=== PATIENT | female | born 1950 | race Hispanic/Latino ===

== ENCOUNTER 2016-11-26 16:48 | Observation (INO) | payer MEDICARE, OTHER ==
[2016-11-26 16:55] VITALS: BMI 34.1
[2016-11-26] MEDS ORDERED: Levalbuterol 1.25 MG/3 ML Inhal Soln UD IH STA (17:09)
[2016-11-26 17:14] LABS: ADD MANUAL DIFF? NO
--- NOTE | 2016-11-26 17:14 | ED PDOC ---
Arrival/HPI - General Chief Complaint: Chest Pain Time Seen by Provider: 11/26/16 16:51 Historian: Patient - History of Present Illness Narrative History of Present Illness (Text): 11/26/16 17:07 A 66 year old female, whose past medical history includes CT, 5 cardiac stents, hypertension, hyperlipidemia and borderline diabetes, presents to the emergency department complaining of chest heaviness for 1 week. Patient reports she experiences this symptom when ambulating and notes associated left arm tightness. Patient was seen by PMD yesterday, diagnosed with bronchitis and started on antibiotics. Patient notes a mild cough and congestion but denies any fever, chills, nausea, vomiting, diarrhea, abdominal pain, urinary symptoms , hematuria, hematochezia, headache, dizziness or any other complaints. Patient regularly takes Plavix. PMD: Dr. Muro Time/Duration: 1 week Symptom Course: Unchanged Quality: Other Context: Walking Past Medical History - Provider Review Nursing Documentation Reviewed: Yes - Infectious Disease Hx of Infectious Diseases: None - Cardiac Hx CT: Yes Hx Hypertension: Yes - HEENT Hx HEENT Disorder: (sinus problems) - Musculoskeletal/Rheumatological Hx Falls: No - Genitourinary/Gynecological Hx Genitourinary Disorders: (fibroids and uterine polyps) - Psychiatric Hx Anxiety: Yes Hx Depression: Yes Hx Emotional Abuse: No Hx Physical Abuse: No Hx Substance Use: No - Past Surgical History Past Surgical History: Unable to Obtain - Surgical History Hx Cardiac Catheterization: Yes Hx Coronary Stent: Yes (x5 5 yrs ago) - Suicidal Assessment Feels Threatened In Home Enviroment: No Family/Social History - Physician Review Nursing Documentation Reviewed: Yes Family/Social History: No Known Family HX Smoking Status: Heavy Smoker > 10 Cigarettes Daily Hx Alcohol Use: No Hx Substance Use: No Hx Substance Use Treatment: No Allergies/Home Meds Allergies/Adverse Reactions: Allergies No Known Allergies Allergy (Verified 05/05/15 12:19) Home Medications: Home Meds Medication Instructions Recorded Confirmed Amlodipine Besylate 5 mg PO DAILY 04/02/12 05/05/15 Aspirin [Aspir 81] 81 mg PO DAILY 04/02/12 05/05/15 Atrovastatin 20 mg PO DAILY 10/06/13 05/05/15 Meloxicam [Meloxicam] 7.5 mg PO PRN PRN 04/17/14 11/14/15 Metoprolol Succinate 50 mg PO DAILY 10/06/13 05/05/15 Review of Systems - Physician Review All systems were reviewed & negative as marked: Yes - Review of Systems Constitutional: absent: Fevers, Night Sweats ENT: Sinus Congestion Respiratory: Cough Cardiovascular: Chest Pain Gastrointestinal: absent: Abdominal Pain, Diarrhea, Nausea, Vomiting, Hematochezia Genitourinary Female: absent: Dysuria, Frequency, Hematuria, Urine Output Changes Musculoskeletal: Other (Left arm tightness) Neurological: absent: Headache, Dizziness Physical Exam Vital Signs Reviewed: Yes Vital Signs Temp Pulse Resp BP Pulse Ox 11/26/16 16:52 98.3 F 90 16 162/89 H 97 Temperature: Afebrile Blood Pressure: Hypertensive Pulse: Regular Respiratory Rate: Normal Appearance: Positive for: Well-Appearing, Non-Toxic, Comfortable Pain Distress: None Mental Status: Positive for: Alert and Oriented X 3 - Systems Exam Head: Present: Atraumatic, Normocephalic Pupils: Present: PERRL Conjunctiva: Present: Normal Mouth: Present: Moist Mucous Membranes Pharnyx: Present: Normal. No: ERYTHEMA Neck: Present: Normal Range of Motion Respiratory/Chest: Present: Clear to Auscultation, Decreased Breath Sounds ( Mildly). No: Respiratory Distress, Accessory Muscle Use Cardiovascular: Present: Regular Rate and Rhythm, Normal S1, S2. No: Murmurs Abdomen: Present: Normal Bowel Sounds. No: Tenderness, Distention, Peritoneal Signs Back: Present: Normal Inspection Upper Extremity: Present: Normal Inspection. No: Cyanosis, Edema Lower Extremity: Present: Normal Inspection. No: Edema Neurological: Present: GCS=15, CN II-XII Intact, Speech Normal Skin: Present: Warm, Dry, Normal Color. No: Rashes Psychiatric: Present: Alert, Oriented x 3, Normal Insight, Normal Concentration Medical Decision Making ED Course and Treatment: 11/26/16 17:07 Impression: A 66 year old female with chest heaviness and left arm tightness when ambulating. Patient notes mild cough and congestion. Plan: -- Chest xray -- EKG -- Labs -- Urinalysis -- Xopenex -- Reassess and disposition Progress Notes: EKG shows NSR at 93 BPM with T wave flattening in V4, V5 and V6, with changes compared to prior EKG on 10/07/13. Interpreted by me. 11/26/16 18:55 Patient with noted history of CAD/stents, on asa and plavix. EKG shows nondefinitive changes. Labs are nondiagnostic. CXR is unremarkable. She already took her asa today. Will need to observe further on tele and obtain cardiology evaluation. Case discussed with Dr. Bhatia, covering her PMD, Dr. Muro. - Lab Interpretations Lab Results: 11/26/16 17:00 11/26/16 17:00 Lab Results 11/26/16 17:45: Urine Color Yellow, Urine Appearance Clear, Urine pH 6.0, Ur Specific [place] 1.025, Urine Protein Negative, Urine Glucose (UA) Negative, Urine Ketones Negative, Urine Blood Negative, Urine Nitrate Negative, Urine Bilirubin Negative, Urine Urobilinogen 0.2, Ur Leukocyte Esterase Negative 11/26/16 17:00: PT 10.8, INR 1.00, APTT 28.5 11/26/16 17:00: Sodium 137, Potassium 3.9, Chloride 103, Carbon Dioxide 23, Anion Gap 15, BUN 20, Creatinine 0.8, Est GFR ( Amer) > 60, Est GFR (Non- Af Amer) > 60, Random Glucose 106, Calcium 11.0 H, Magnesium 1.7, Total Bilirubin 0.6, AST 32, ALT 35, Alkaline Phosphatase 122, Lactate Dehydrogenase 455, Total Creatine Kinase 71, Troponin I < 0.01 D, NT-Pro-B Natriuret Pep 129 , Total Protein 8.2, Albumin 4.8, Globulin 3.4, Albumin/Globulin Ratio 1.4, Lipase 140 11/26/16 17:00: WBC 13.3 H, RBC 5.41, Hgb 16.4 H, Hct 47.3, MCV 87.4, MCH 30.3, MCHC 34.7, RDW 13.6, Plt Count 260, MPV 10.6, Gran % 53.2, Lymph % (Auto) 35.9 H , [place] % (Auto) 7.8 H, Eos % (Auto) 2.6, Baso % (Auto) 0.5, Gran # 7.10 H, Lymph # 4.8 H, [place] # 1.0 H, Eos # 0.3, Baso # 0.06 I have reviewed the lab results: Yes - RAD Interpretation Radiology Orders: 11/26/16 17:09 CHEST PORTABLE [RAD] Stat - Medication Orders Current Medication Orders: Discontinued Medications Levalbuterol HCl (Xopenex) 1.25 mg IH STAT STA Stop: 11/26/16 17:10 Last Admin: 11/26/16 17:19 Dose: 1.25 mg - Scribe Statement The provider has reviewed the documentation as recorded by the Yosephibcarlota Avila Provider Scribe Attestation: All medical record entries made by the Scribe were at my direction and personally dictated by me. I have reviewed the chart and agree that the record accurately reflects my personal performance of the history, physical exam, medical decision making, and the department course for this patient. I have also personally directed, reviewed, and agree with the discharge instructions and disposition. Disposition/Present on Arrival - Present on Arrival Any Indicators Present on Arrival: No History of DVT/PE: No History of Uncontrolled Diabetes: No Urinary Catheter: Yes (INSERTED IN OR) History of Decub. Ulcer: No History Surgical Site Infection Following: None - Disposition Have Diagnosis and Disposition been Completed?: Yes Diagnosis: Chest pain Disposition: HOSPITALIZED Disposition Time: 18:20 Patient Plan: Observation, Telemetry Condition: FAIR
[2016-11-26 17:17] LABS: BASO # 0.06 K/mm3 (0.0-2.0); BASO % 0.5 % (0.0-3.0); EOS # 0.3 (0.0-0.7); EOS % 2.6 % (1.5-5.0); GRAN % 53.2 % (50.0-68.0); HEMATOCRIT 47.3 % (36.0-48.0); LYMPH # 4.8 (1.2-3.4); LYMPH % 35.9 % (22.0-35.0); MEAN CELL VOLUME 87.4 fL (80.0-105.0); MEAN CORPUSCULAR HEMOGLOBIN 30.3 pg (25.0-35.0); MEAN CORPUSCULAR HGB CONC 34.7 g/dl (31.0-37.0); MEAN PLATELET VOLUME 10.6 fl (7.0-11.0); MONO % 7.8 % (1.0-6.0); PLATELET COUNT 260 10^3/uL (120.0-450.0); RED CELL DISTRIBUTION WIDTH 13.6 % (11.5-14.5); WHITE BLOOD COUNT 13.3 10^3/ul (4.5-11.0)
[2016-11-26 17:26] LABS: ALB/GLOB RATIO 1.4 (1.1-1.8); ALKALINE PHOSPHATASE 122 U/L (38-133); ALT/SGPT 35 U/L (7-56); AST/SGOT 32 U/L (15-39); BILIRUBIN,TOTAL 0.6 mg/dL (0.2-1.3); BLOOD UREA NITROGEN 20 mg/dL (7-21); CARBON DIOXIDE 23 mmol/L (21-33); CHLORIDE 103 mmol/L (98-107); GFR AFRICAN-AMERICAN > 60; GLUCOSE,RANDOM 106 mg/dL (70-110); LIPASE 140 U/L (23-300); MAGNESIUM 1.7 mg/dL (1.7-2.2); POTASSIUM 3.9 mmol/L (3.6-5.0); SODIUM 137 mmol/L (132-148); TOTAL PROTEIN 8.2 g/dL (5.8-8.3)
[2016-11-26 17:29] LABS: PARTIAL THROMBOPLASTIN TIME 28.5 Seconds (23.7-30.8)
[2016-11-26 17:39] LABS: TROPONIN I < 0.01 ng/mL
[2016-11-26 18:20] LABS: URINE BILIRUBIN NEGATIVE (NEGATIVE); URINE BLOOD NEGATIVE (NEGATIVE); URINE GLUCOSE (UA) NEGATIVE (NEGATIVE); URINE KETONE NEGATIVE (NEGATIVE); URINE LEUKOCYTE ESTERASE NEGATIVE Leu/uL (NEGATIVE); URINE PROTEIN NEGATIVE mg/dL (<30 mg/dL); URINE UROBILINOGEN 0.2 E.U./dL (<1 E.U./dL)
[2016-11-26 18:26] LABS: URINE APPEARANCE CLEAR (CLEAR); URINE COLOR YELLOW (YELLOW)
--- NOTE | 2016-11-26 18:52 | RAD ---
HISTORY: cp COMPARISON: Chest x-ray performed 10/17/13 TECHNIQUE: Chest, one view. FINDINGS: Examination limited by habitus. LUNGS: Sharply defined opacity at the right lung base, uncertain etiology. Please note that chest x-ray has limited sensitivity for the detection of pulmonary masses. PLEURA: No significant pleural effusion identified. No definite pneumothorax . CARDIOVASCULAR: Cardiomegaly. OSSEOUS STRUCTURES: No acute osseous abnormality identified. VISUALIZED UPPER ABDOMEN: Unremarkable. OTHER FINDINGS: None. IMPRESSION: Sharply defined opacity at the right lung base, uncertain etiology. Recommend CT of the chest with IV contrast for further evaluation. Cardiomegaly.
[2016-11-26] MEDS ORDERED: Pneumococcal 23-Valent Vaccine IM ONE (22:34)
[2016-11-27 00:24] VITALS: TEMP 98.2; O2SAT 98
[2016-11-27 02:11] LABS: TROPONIN I < 0.01 ng/mL
[2016-11-27 05:33] VITALS: BP 122/79; RESP 18
[2016-11-27 06:23] VITALS: PULSE 57
--- NOTE | 2016-11-27 08:16 | HP ---
I saw her in her room this morning. She is comfortable, slept fairly well, nervous. She is a 66-yea r-old female, presents with chest pain, heaviness for about a week, not feeling well, also left arm t ightness. She has had bronchitis. She has been on antibiotics. Mild cough, congestion. PAST MEDICAL HISTORY: Myocardial infarction, 5 cardiac stents, hypertension, high cholesterol, borde rline diabetes, sinus problems, fibroids and uterine polyps, anxiety, depression stents in the heart. FAMILY HISTORY: Hypertension and diabetes in the family. She is a heavy smoker, no alcohol. ALLERGIES: No known drug allergies. MEDICATIONS: She is on Norvasc, aspirin, atorvastatin, Meloxicam, metoprolol. No acute fevers, no night sweats. No vision changes, no hearing changes, no sore throat. She is cou ghing. There is sinus congestion. There is chest pain, left chest pressure, left arm pain. No naus ea, vomiting, constipation, diarrhea. No problems urinating. Left arm tightness. No headaches or d izziness. PHYSICAL EXAMINATION: VITAL SIGNS: She has a 98.3 temp, 90 pulse, 16 respiratory rate, 162/89 blood pressure, 97% O2 sat. GENERAL: Well-appearing, nontoxic. HEENT: Head is atraumatic, normocephalic. Pupils equally reactive to light. Extraocular muscles ar e intact. Throat is moist. NECK: Supple. HEART: Regular rate. LUNGS: Decreased breath sounds, but clear to auscultation. ABDOMEN: Soft, nontender, positive bowel sounds, obese. EXTREMITIES: No edema. NEUROLOGIC: GCS is 15. Cranial nerves II-XII grossly intact. SKIN: Warm and dry. NEUROLOGIC: Alert and oriented x 3. LYMPHATIC: Thyroid midline. No palpable lymphadenopathy. She has a 13,000 white count, 13.3, 16.4 hemoglobin, 47.3 hematocrit with 260 platelets. INR is 1. She has a 137 sodium, potassium 3.9, BUN 20, creatinine 0.8, GFR is greater than 60, sugar is 106, ca lcium is 11, magnesium is 1.7, total bili is 0.6, AST is 32, ALT is 35, alk phos 122. Troponins are 0.01, less than 0.01. Total protein is 8.2. BNP is 129. Albumin is 4.8. I am upset about the 11 calcium when being a smoker. Urine is clean. Her chest x-ray shows an opaci ty in the right lung base. With an 11 calcium and opacity in the right lung base, I have to make josh e it is not a cancer. I am ordering a CAT scan of the chest. I called in pulmonary. Cardio not see n her yet. I am worried there could be a lung cancer. I discussed that with her. I am trying to ge t her to do the CAT scan. At this time, she is refusing. I will go in one more time. I can gave he r a medication to calm her down. We will see what she says. She is on atorvastatin, Ecotrin, Norvasc, Toprol, and Xopenex. She is here for chest pain and now a lung opacity. Clifford Muro DO cc: [id number] TT: 11/27/2016 08:16:25 en
--- NOTE | 2016-11-27 08:25 | DS ---
She came in with chest pain. The troponins are negative. She is refusing to stay anymore. There wa s also an opacity in the lungs and I am asking for a CAT scan of the chest. She out right refuses an d wants to go home. It is in the right lung base. She also has an 11 calcium. I discussed the poss ibility of cancer of the lung. She is a heavy smoker for many years. She refuses to get the CAT sca n. She says maybe one day in the next week or 2 she will get the CAT scan, but she does not want it now. She does not want to stay for the software test automation engineer to see her. She will go home on Ecotrin, Lipito r, Norvasc, Toprol. She does have a 13,000 white count. She is on a Z-LAINEY at home. I am going to s top the Z-LAINEY and put her on Levaquin. She will follow with me in the outpatient I hope. She will q uit smoking I hope. She will get the CAT scan of the chest I hope to make sure it is not a cancer. I will repeat the labs in a week. I hope she follows up with me. The oxygen tank filler spoke to her and the nurse spoke to her. Hopefully, she will do well. The patient had chest pain, refusing any furt her workup. Clifford Muro DO cc: [id number] TT: 11/27/2016 08:24:12 tn
--- NOTE | 2016-11-27 08:32 | CON ---
DATE: 11/27/2016 REFERRING PHYSICIAN: Dr. Muro. REASON FOR CONSULTATION: Abnormal chest x-ray. HISTORY OF PRESENT ILLNESS: The patient is a 66-year-old female with past medical history significant for extensive coronary artery disease, status post 5 cardiac stents, hypertension, hyperlipidemia, borderline diabetes mellitus, who presents to [facility] with intermittent chest discomfort ( described as a heaviness) for the past week. The patient is not short of breath at rest. She does state to some mild occasional dyspnea on exertion for many years. She denies cough or sputum production. The patient also denies chest pain, coughing up of blood or chest pain -- made worse with deep respirations. There is no history of temperatures, chills or infectious exposure. There is no history of night sweats, weight loss or appetite change prior to the above events. No history of leg or calf pains. No history of syncope or diaphoresis. No history of recent travel or trauma. REVIEW OF SYSTEMS: No history of nausea, vomiting or diarrhea. No acute urinary symptoms. No new neurologic complaints. Rest of the review of systems is negative. ALLERGIES: No known allergies. SOCIAL HISTORY: Positive for extensive tobacco usage -- still smokes. No alcohol. FAMILY HISTORY: No inheritable diseases. HOME MEDICATIONS: Include metoprolol, meloxicam, atorvastatin, aspirin, amlodipine. PHYSICAL EXAMINATION: GENERAL: The patient appears comfortable at rest. She is not short of breath. VITAL SIGNS: Temperature is 98.2, pulse 57, respirations 18, blood pressure 122 /79. Oxygen saturation on room air is 98%. HEENT: Normocephalic, atraumatic. NECK: No JVD. CARDIOVASCULAR: Positive S1, S2. No S3. LUNGS: Clear bilaterally. EXTREMITIES: Mild edema. No cyanosis, no clubbing. Calves are nontender to palpation. GASTROINTESTINAL: Abdomen is soft, nontender, nondistended. Bowel sounds are positive. SKIN: No acute rash. NEUROLOGIC: Limited at the present time. PERTINENT LABORATORY DATA: Chest x-ray was done yesterday and reviewed. There is an irregular opacity noted at the right lung base. This opacity has been present-- dating back to the film of 01/18/13. CBC: White count 13.3, hemoglobin 16.4, hematocrit 47.3, platelets of 260. Complete metabolic profile : Calcium 11.0. Rest of the metabolic profile is within normal limits. IMPRESSION: 1. Chest discomfort -- resolved. 2. Extensive coronary artery disease. 3. Abnormal chest x-ray. 4. Hypertension. PLAN: The patient presents to [facility] with intermittent chest discomfort (described as a heaviness) over the past week. She also has a history of dyspnea on exertion for many years. As above, she has an extensive smoking history - and continues to smoke. I did discuss this issue with her at length this morning. I did review the chest x-ray as above. The x-ray shows an irregular opacity at the right base -- which was present on multiple films - - dating back to 01/18/13. A CAT scan of the chest has been ordered for closer evaluation. On physical exam, the patient's lungs are clear. Oxygen saturation on room air is 98%. As above, the patient's chest discomfort has resolved. She feels much better overall. Cardiology evaluation with Dr. Arguello has been ordered. Repeat a.m. labs are also ordered. The patient is for possible discharge later today. I have given her my card/information for a followup appointment - and advised the patient strongly that she follow up with me. She agrees. Additional pulmonary intervention will be based on the above results, as well as the clinical status of the patient. I did discuss the above with Dr. Mruo at length. Thank you very much for this pulmonary consultation. Lopez Diop MD cc: [id number] TT: 11/27/2016 08:31:21 Confirmation # [id number] Dictation # [id number] MTDD
[2016-11-27] MEDS ORDERED: Metoprolol Succinate 50 mg XL Tab PO SCH (10:00)
[2016-11-27] MEDS ORDERED: levoFLOXacin 500 MG TAB PO SCH (10:00)
--- NOTE | 2016-11-27 10:33 | CARD ---
APPROVED REPORT EKG Measurement Heart [id number] ID [id number] <Conclusion> Normal sinus rhythm Inferior infarct, old NSSTW changes
== END 2016-11-27 11:00 | disposition home or self-care (01) ==
LOC: ED 16:48 → ERH 18:21 → 2RNO 23:22
PROVIDERS: ADMIT Family Medicine; ATTEND Family Medicine
DX: R07.9 Chest pain, unspecified (principal); I10 Essential (primary) hypertension; E78.00 Pure hypercholesterolemia, unspecified; I25.10 Atherosclerotic heart disease of native coronary artery without angina pectoris; E78.5 Hyperlipidemia, unspecified; R73.03 Prediabetes; F41.9 Anxiety disorder, unspecified; F17.200 Nicotine dependence, unspecified, uncomplicated; F32.9 Major depressive disorder, single episode, unspecified; R91.8 Other nonspecific abnormal finding of lung field; N84.0 Polyp of corpus uteri; D25.9 Leiomyoma of uterus, unspecified; I25.2 Old myocardial infarction; Z95.5 Presence of coronary angioplasty implant and graft; Z79.82 Long term (current) use of aspirin
CPT/HCPCS: 36415; 71010; 80053; 81003; 82550; 83615; 83690; 83735; 83880; 84484; 85025; 85610; 85730; 93005; 99285; G0378

== ENCOUNTER 2017-07-27 18:13 | Emergency (ER) | payer MEDICARE, OTHER ==
[2017-07-27 18:13] VITALS: BMI 36.0
[2017-07-27 18:41] VITALS: BP 129/75; PULSE 98; TEMP 98.8; O2SAT 98
--- NOTE | 2017-07-27 19:00 | ED PDOC ---
Arrival/HPI - General Chief Complaint: Back Pain Time Seen by Provider: 07/27/17 18:49 Historian: Patient - History of Present Illness Narrative History of Present Illness (Text): 07/27/17 19:00 67yo female with PMHx of hypertension, hypercholestrolemia and Diabetes present with 3days history of worsening right sided neck pain . states pain started after she started exercising her right shoulder to resolved stiff shoulder. states the stiff shoulder resolved, but then she started having neck pain. taking OTC analgesia without relieve. Pain is worse with lateral movement of her head to the left. She denies trauma, focal weakness, back pain, nausea, visual changes, headache, rash, fever, any other complaint. Past Medical History - Provider Review Nursing Documentation Reviewed: Yes - Infectious Disease Hx of Infectious Diseases: None - Reproductive Menopause: Yes - Cardiac Hx Pacemaker: No - Pulmonary Hx Chronic Obstructive Pulmonary Disease (COPD): Yes - Neurological Hx Paralysis: No - HEENT Hx HEENT Disorder: Yes (sinus problems, eyeglasses) - Endocrine/Metabolic Hx Endocrine Disorders: Yes (borderline diabetic) - Hematological/Oncological Hx Blood Transfusions: No - Musculoskeletal/Rheumatological Hx Musculoskeletal Disorders: Yes - Genitourinary/Gynecological Hx Genitourinary Disorders: (fibroids and uterine polyps) - Psychiatric Hx Anxiety: Yes Hx Depression: Yes Hx Emotional Abuse: No Hx Physical Abuse: No Hx Substance Use: No - Past Surgical History Past Surgical History: Unable to Obtain - Surgical History Hx Cardiac Catheterization: Yes Hx Coronary Stent: Yes Hx Hysterectomy: No - Anesthesia Hx Anesthesia Reactions: No - Suicidal Assessment Feels Threatened In Home Enviroment: No Family/Social History - Physician Review Nursing Documentation Reviewed: Yes Family/Social History: Unknown Family HX Smoking Status: Heavy Smoker > 10 Cigarettes Daily Hx Alcohol Use: No Hx Substance Use: No Hx Substance Use Treatment: No Allergies/Home Meds Allergies/Adverse Reactions: Allergies DAIRY Allergy (Intermediate, Uncoded 07/27/17 18:29) CONGESTION SINUS PROBLEMS, BLOCKED NOSE Home Medications: Home Meds Medication Instructions Recorded Confirmed Amlodipine Besylate 5 mg PO DAILY 04/02/12 07/27/17 Aspirin [Aspir 81] 81 mg PO DAILY 04/02/12 07/27/17 Metoprolol Succinate 50 mg PO DAILY 10/06/13 07/27/17 Clopidogrel [Plavix] 75 mg PO DAILY 05/28/17 07/27/17 hydroCHLOROthiazide [Microzide] 25 mg PO DAILY 05/28/17 07/27/17 metFORMIN [glucOPHAGE] 500 mg PO BID 05/28/17 07/27/17 Atorvastatin [Lipitor] 40 mg PO DAILY 06/01/17 07/27/17 Ibuprofen [Advil] 1 tab PO Q6H PRN 07/27/17 07/27/17 Review of Systems - Physician Review All systems were reviewed & negative as marked: Yes - Review of Systems Constitutional: Normal Eyes: Normal ENT: Normal Respiratory: Normal Cardiovascular: Normal Gastrointestinal: Normal Genitourinary Female: Normal Musculoskeletal: Neck Pain Skin: Normal Neurological: Normal Endocrine: Normal Hemo/Lymphatic: Normal Psychiatric: Normal Physical Exam Vital Signs Reviewed: Yes Vital Signs Temp Pulse Resp BP Pulse Ox 07/27/17 18:24 98.8 F 98 H 20 129/75 98 07/27/17 18:13 98.8 F 98 H 20 129/75 98 Temperature: Afebrile Blood Pressure: Normal Pulse: Regular Respiratory Rate: Normal Appearance: Positive for: Well-Appearing, Non-Toxic, Comfortable Pain Distress: None Mental Status: Positive for: Alert and Oriented X 3 - Systems Exam Head: Present: Atraumatic, Normocephalic Pupils: Present: PERRL Extroacular Muscles: Present: EOMI Conjunctiva: Present: Normal Mouth: Present: Moist Mucous Membranes Neck: Present: Paraspinal Tenderness (Right sided tenderness). No: Normal Range of Motion (Limited on lateral bend to the left), MIDLINE TENDERNESS Respiratory/Chest: Present: Clear to Auscultation, Good Air Exchange. No: Respiratory Distress, Accessory Muscle Use Cardiovascular: Present: Regular Rate and Rhythm, Normal S1, S2. No: Murmurs Abdomen: Present: Normal Bowel Sounds. No: Tenderness, Distention, Peritoneal Signs Back: Present: Normal Inspection Upper Extremity: Present: Normal Inspection. No: Cyanosis, Edema Lower Extremity: Present: Normal Inspection. No: Edema Neurological: Present: GCS=15, CN II-XII Intact, Speech Normal Skin: Present: Warm, Dry, Normal Color. No: Rashes Lymphatic: Present: Other (Right posterior auricular node tender and palpable) Psychiatric: Present: Alert, Oriented x 3, Normal Insight, Normal Concentration Medical Decision Making ED Course and Treatment: 07/27/17 20:17 PT presented for stated history. On re evaluation she states pain improved mildly, but still having pain. Tramadol was ordered. Cervical spine xray - No acute finding Result was DW the pt. she will be DC home with a rx of Tramadol and baclofen She have appointment with her PMD tomorrow and was advised to keep her appointment. - RAD Interpretation Radiology Orders: 07/27/17 18:49 CERVICAL SPINE >18YR W/OBLIQUE [RAD] Stat - Medication Orders Current Medication Orders: Discontinued Medications Amoxicillin (Amoxil 500 Mg Cap) 500 mg PO STAT STA PRN Reason: Protocol Stop: 07/27/17 18:54 Last Admin: 07/27/17 19:03 Dose: 500 mg Diazepam (Valium) 5 mg PO ONCE ONE PRN Reason: Protocol Stop: 07/27/17 18:53 Last Admin: 07/27/17 19:04 Dose: 5 mg Ketorolac Tromethamine (Toradol) 60 mg IM STAT STA Stop: 07/27/17 18:52 Last Admin: 07/27/17 19:04 Dose: 60 mg MAR Pain Assessment Document 07/27/17 19:04 SRE (Rec: 07/27/17 19:05 SRE [id number]) Pain Reassessment Is this a pain reassessment? Yes Sleep Is patient sleeping during reassessment? No Presence of Pain Presence of Pain Yes Location Left, Right or Bilateral Right Pain Location Body Site Neck Description Description Sharp IM Administration Charges Document 07/27/17 19:04 SRE (Rec: 07/27/17 19:05 SRE [id number]) Charges for Administration # of IM Administrations 1 Disposition/Present on Arrival - Present on Arrival Any Indicators Present on Arrival: No History of DVT/PE: No History of Uncontrolled Diabetes: No Urinary Catheter: No History of Decub. Ulcer: No History Surgical Site Infection Following: None - Disposition Have Diagnosis and Disposition been Completed?: Yes Diagnosis: Cervical strain, Lymphadenopathy Disposition: HOME/ ROUTINE Disposition Time: 20:20 Patient Plan: Discharge Condition: STABLE Discharge Instructions (ExitCare): Cervical Strain (DC) Additional Instructions: Follow up with your doctor Return to ED for any new or worsening symptoms Prescriptions: Baclofen [Lioresal] 5 mg PO BID #10 tab traMADol [Ultram] 50 mg PO TID #9 tab Referrals: Clifford Muro DO [Primary Care Provider] - Follow up with primary Forms: [employer] (Irish)
[2017-07-27 20:40] VITALS: RESP 18
--- NOTE | 2017-07-28 08:31 | RAD ---
PROCEDURE: Cervical Spine Radiographs. HISTORY: Pain. COMPARISON: None. FINDINGS: BONES: Alignment maintained. No fracture. Dens Intact. DISC SPACES: There is disc degeneration at C5-6 and C6-7 SOFT TISSUES: Normal. No prevertebral soft tissue swelling. OTHER FINDINGS: None. IMPRESSION: Mild disc degeneration
== END 2017-07-27 20:40 | disposition home or self-care (01) ==
LOC: ED 18:13
DX: S16.1XXA Strain of muscle, fascia and tendon at neck level, initial encounter (principal); Y93.B9 Activity, other involving muscle strengthening exercises; R59.1 Generalized enlarged lymph nodes; I10 Essential (primary) hypertension; E11.9 Type 2 diabetes mellitus without complications; E78.00 Pure hypercholesterolemia, unspecified; F17.210 Nicotine dependence, cigarettes, uncomplicated
CPT/HCPCS: 72050; 96372; 99282; J1885

== ENCOUNTER 2017-07-29 11:18 | Emergency (ER) | payer MEDICARE, OTHER ==
[2017-07-29 10:51] VITALS: BMI 36.0
[2017-07-29 11:07] VITALS: RESP 18; O2SAT 96
--- NOTE | 2017-07-29 12:30 | ED PDOC ---
Arrival/HPI - General Chief Complaint: Allergic Reaction Time Seen by Provider: 07/29/17 12:24 Historian: Patient - History of Present Illness Narrative History of Present Illness (Text): 07/29/17 12:23 A 67 year old female, whose past medical history includes hypertension, hyperlipidemia, and diabetes, presents to the emergency department complaining of sensation of throat closing. Patient reports last night taking medication prescribed to her and began experiencing symptoms. She read online that one of the medications she took could cause this. She doesn't remember the name of it. Patient notes also experiencing sneezing, dry mouth, but denies any cough, nasal congestion, shortness of breathe, chest pain, fever, or any other complaints at this time. Also, patient mentions she was here 2 days ago for neck pain and had neck x-ray done, which showed results were negative according to patient. Mentions taking Tramadol this morning. PMD: Dr. Muro Time/Duration: Other (last night) Symptom Onset: Sudden, Gradual Symptom Course: Unchanged Past Medical History - Provider Review Nursing Documentation Reviewed: Yes - Infectious Disease Hx of Infectious Diseases: None - Reproductive Menopause: Yes - Cardiac Hx Pacemaker: No - Pulmonary Hx Chronic Obstructive Pulmonary Disease (COPD): Yes - Neurological Hx Paralysis: No - HEENT Hx HEENT Disorder: Yes (sinus problems, eyeglasses) - Endocrine/Metabolic Hx Endocrine Disorders: Yes (borderline diabetic) - Hematological/Oncological Hx Blood Transfusions: No - Musculoskeletal/Rheumatological Hx Musculoskeletal Disorders: Yes - Genitourinary/Gynecological Hx Genitourinary Disorders: (fibroids and uterine polyps) - Psychiatric Hx Anxiety: Yes Hx Depression: Yes Hx Emotional Abuse: No Hx Physical Abuse: No Hx Substance Use: No - Past Surgical History Past Surgical History: Unable to Obtain - Surgical History Hx Cardiac Catheterization: Yes Hx Coronary Stent: Yes Hx Hysterectomy: No - Anesthesia Hx Anesthesia: Yes Hx Anesthesia Reactions: No Hx Malignant Hyperthermia: No - Suicidal Assessment Feels Threatened In Home Enviroment: No Family/Social History - Physician Review Nursing Documentation Reviewed: Yes Family/Social History: No Known Family HX Smoking Status: Heavy Smoker > 10 Cigarettes Daily Hx Alcohol Use: No Hx Substance Use: No Hx Substance Use Treatment: No Allergies/Home Meds Allergies/Adverse Reactions: Allergies DAIRY Allergy (Intermediate, Uncoded 07/29/17 11:07) CONGESTION SINUS PROBLEMS, BLOCKED NOSE Home Medications: Home Meds Medication Instructions Recorded Confirmed Amlodipine Besylate 5 mg PO DAILY 04/02/12 07/29/17 Aspirin [Aspir 81] 81 mg PO DAILY 04/02/12 07/29/17 Metoprolol Succinate 50 mg PO DAILY 10/06/13 07/29/17 Clopidogrel [Plavix] 75 mg PO DAILY 05/28/17 07/29/17 hydroCHLOROthiazide [Microzide] 25 mg PO DAILY 05/28/17 07/29/17 metFORMIN [glucOPHAGE] 500 mg PO BID 05/28/17 07/29/17 Atorvastatin [Lipitor] 40 mg PO DAILY 06/01/17 07/29/17 Ibuprofen [Advil] 1 tab PO Q6H PRN 07/27/17 07/29/17 Review of Systems - Physician Review All systems were reviewed & negative as marked: Yes - Review of Systems Constitutional: absent: Fevers ENT: Other (throat tightening sensation after taking medication last night). absent: Sinus Congestion Respiratory: absent: SOB, Cough Cardiovascular: absent: Chest Pain Gastrointestinal: absent: Abdominal Pain Physical Exam Vital Signs Reviewed: Yes Vital Signs Temp Pulse Resp BP Pulse Ox 07/29/17 13:31 61 07/29/17 13:23 98 F 51 L 18 126/64 96 07/29/17 10:56 98.2 F 75 18 138/92 H 96 Temperature: Afebrile Blood Pressure: Normal Pulse: Regular Respiratory Rate: Normal Appearance: Positive for: Well-Appearing Pain Distress: None Mental Status: Positive for: Alert and Oriented X 3 - Systems Exam Head: Present: Atraumatic, Normocephalic Pupils: Present: PERRL Extroacular Muscles: Present: EOMI Conjunctiva: Present: Normal Mouth: Present: Moist Mucous Membranes Neck: Present: Normal Range of Motion Respiratory/Chest: Present: Clear to Auscultation, Good Air Exchange. No: Respiratory Distress, Accessory Muscle Use Cardiovascular: Present: Regular Rate and Rhythm, Normal S1, S2. No: Murmurs Abdomen: Present: Normal Bowel Sounds. No: Tenderness, Distention, Peritoneal Signs Back: Present: Normal Inspection Upper Extremity: Present: Normal Inspection. No: Cyanosis, Edema Lower Extremity: Present: Normal Inspection. No: Edema Neurological: Present: GCS=15, CN II-XII Intact, Speech Normal Skin: Present: Warm, Dry, Normal Color. No: Rashes Psychiatric: Present: Alert, Oriented x 3, Normal Insight, Normal Concentration Medical Decision Making ED Course and Treatment: 07/29/17 12:27 Impression: 67 year old female complaining of throat closing sensation. Differential Diagnosis included but are not limited to: Possible Allergic Reactions vs Viral Pharyngitis/Viral Syndrome Plan: -- Chest X-ray -- Benadryl -- predniSONE -- Soft Neck Tissue X-Ray -- Reassess and disposition Prior Visits: Notes and results from previous visits were reviewed. Patient was last seen in the emergency department on 07/27/2017 for worsening right sided neck pain. Patient was discharged home. Progress Notes: 07/29/2017 13:47 Chest X-ray IMPRESSION: No active disease. Dictator: Clifford Mcfarlane MD 07/29/2017 13:47 Soft Tissue Neck X-Ray IMPRESSION: No visualized radiopaque/visaulized foreign body. Dictator: Clifford Mcfarlane MD Patient is tolerating PO fluids. She does not have any rash, throat swelling, drooling or respiratory symptoms concerning for a severe allergic reaction or anaphylaxis. On re-evaluation, patient feels better and is in no acute distress. I have discussed the results and plan with the patient, who expresses understanding. Patient in agreement with plan to be discharged home. Patient is stable for discharge. Patient was instructed to follow up with physician or return if symptoms worsen or new concerning symptoms arise. - RAD Interpretation Radiology Orders: 07/29/17 12:26 NECK SOFT TISSUE [RAD] Stat 07/29/17 12:27 CXR [CHEST TWO VIEWS (PA/LAT)] [RAD] Stat - Medication Orders Current Medication Orders: Discontinued Medications Diphenhydramine HCl (Benadryl) 50 mg PO STAT STA Stop: 07/29/17 12:27 Last Admin: 07/29/17 12:38 Dose: 50 mg Prednisone (Prednisone Tab) 60 mg PO STAT STA Stop: 07/29/17 12:27 Last Admin: 07/29/17 12:37 Dose: 60 mg - Scribe Statement The provider has reviewed the documentation as recorded by the Elaine Godoy Provider Scribe Attestation: All medical record entries made by the Scribe were at my direction and personally dictated by me. I have reviewed the chart and agree that the record accurately reflects my personal performance of the history, physical exam, medical decision making, and the department course for this patient. I have also personally directed, reviewed, and agree with the discharge instructions and disposition. Disposition/Present on Arrival - Present on Arrival Any Indicators Present on Arrival: No History of DVT/PE: No History of Uncontrolled Diabetes: No Urinary Catheter: No History of Decub. Ulcer: No History Surgical Site Infection Following: None - Disposition Have Diagnosis and Disposition been Completed?: Yes Diagnosis: Allergic reaction Disposition: HOME/ ROUTINE Disposition Time: 14:03 Patient Plan: Discharge Condition: IMPROVED Discharge Instructions (ExitCare): [place] (ED) Additional Instructions: Ms Trammell thank you for letting us take care of you today. Your provider was Dr. Serna. You were treated for Allergic Reaction. The emergency medical care you received today was directed at your acute symptoms. If you were prescribed any medication, please fill it and take as directed. It may take several days for your symptoms to resolve. Return to the Emergency Department if your symptoms worsen, do not improve, or if you have any other problems. Please contact your doctor or call one of the physicians/clinics you have been referred to that are listed on the Patient Visit Information form that is included in your discharge packet. Bring any paperwork you were given at discharge with you along with any medications you are taking to your follow up visit. Our treatment cannot replace ongoing medical care by a primary care provider (PCP) outside of the emergency department. Thank you for allowing the [facility] team to be part of your care today. If you had an X-Ray or CT scan: A Radiologist will review the ED reading if any change in treatment is needed we will contact you. If you had a blood, urine, or wound culture: It will take several days for the results, if any change in treatment is needed we will contact you. If you had an STI test: It will take 48 hours for the results. Please call after 1 week if you have not heard back. Prescriptions: DiphenhydrAMINE [Benadryl] 50 mg PO Q6 PRN #30 cap PRN Reason: Allergy Symptoms predniSONE [predniSONE Tab] 40 mg PO DAILY #8 tab Referrals: Clifford Muro DO [Primary Care Provider] - Follow up with primary Forms: [employer] (Scottish)
[2017-07-29 13:27] VITALS: BP 126/64; TEMP 98
[2017-07-29 13:32] VITALS: PULSE 61
--- NOTE | 2017-07-29 13:48 | RAD ---
HISTORY: r/o fb COMPARISON: Prep number palpable point of the No prior. TECHNIQUE: Chest PA and lateral FINDINGS: LUNGS: No active pulmonary disease. PLEURA: No significant pleural effusion identified. No pneumothorax apparent. CARDIOVASCULAR: Normal. OSSEOUS STRUCTURES: No significant abnormalities. VISUALIZED UPPER ABDOMEN: No visulaized radiopaque/visualized foreign body. OTHER FINDINGS: None. IMPRESSION: No active disease.
--- NOTE | 2017-07-29 13:49 | RAD ---
PROCEDURE: Radiographs of the neck (soft tissue). HISTORY: fb feeling COMPARISON: None. TECHNIQUE: Frontal and Lateral Radiographs of the neck, optimized for soft tissue visualization. FINDINGS: SOFT TISSUES: Unremarkable. No radiopaque foreign body seen. CERVICAL SPINE: Multilevel degenerative changes incompletely visualize. OTHER FINDINGS: None. IMPRESSION: No visulaized radiopaque/visualized foreign body.
== END 2017-07-29 15:30 | disposition home or self-care (01) ==
LOC: ED 11:18
DX: T78.40XA Allergy, unspecified, initial encounter (principal); E11.9 Type 2 diabetes mellitus without complications; E78.5 Hyperlipidemia, unspecified; F17.210 Nicotine dependence, cigarettes, uncomplicated; I10 Essential (primary) hypertension

== ENCOUNTER 2017-08-03 06:40 | Day surgery (SDC) | payer MEDICARE, OTHER ==
[2017-07-27 09:05] VITALS: BMI 36.0
--- NOTE | 2017-08-02 21:15 | HP ---
REASON FOR ADMISSION: Left heart catheterization, possible angioplasty, abnormal stress test. BRIEF CLINICAL HISTORY: This is a 67-year-old female with a past medical history significant for type 2 diabetes, hypertension, coronary artery disease, status post PTCA x2, Dr. Chan [address] Arguello in 2013, who came to the emergency room with Vfib requiring a small brief CPR, and then the patient had cardiac catheterization of RCA was done by Dr. Arguello on 10/06/2016, who was complaining of mild chest discomfort. The patient underwent stress test and came for the second opinion of the stress test, and seems the stress test was abnormal dated 05/28/2017. Cardiac catheterization was offered. Patient accepted and coming for cardiac catheterization. PAST MEDICAL HISTORY: Significant for coronary artery disease, diabetes, hypertension, hyperlipidemia, obesity, history of PTCA x2, first by Dr. Chan 4 to 5 years ago and then most recently on 10/06/2013 when the patient had presented with acute STEMI and occluded RCA, Vfib, and small brief CPR was done at that time and PTCA of occluded RCA was done, and borderline lesion was noted in the LAD and obtuse marginal branch stent noted in the proximal OM branch. Previous cardiac workup as follows. Patient's stress test was on 05/28/2017 that showed abnormal myocardial perfusion study, partially reversible inferior inferolateral defect suspicious for ischemia, a portion of the defect could be secondary to breast attenuation as well. Ejection fraction 58%. Prior to that, patient had cardiac catheterization and angioplasty on 10/06/[address] Arguello when the patient presented with acute STEMI and PTCA of occluded RCA was done. At that time, the cardiac catheterization revealed occluded RCA, borderline disease in LAD and obtuse marginal 1, with stent noted in proximal LAD as well as in proximal RCA. At that time, the cardiac catheterization revealed left main without any significant disease, LAD revealed 50% stenosis; circumflex, obtuse marginal 50% stenosis; occluded RCA was noted, and ejection fraction 50% to 55%. Patient had an echocardiography, 04/16/2016, that shows no pericardial effusion, left ventricular systolic function is normal, ejection fraction 65%, grade I diastolic dysfunction, done by Dr. Ayleen Ibrahim at [facility], stress test was done at [place]. REVIEW OF SYSTEMS: As per HPI. CURRENT MEDICATIONS: Patient is taking ibuprofen, metoprolol, clopidogrel, atorvastatin, aspirin, amlodipine, metformin 5 mg twice, tramadol, prednisone, diphenhydramine and baclofen. PHYSICAL EXAMINATION VITAL SIGNS: Height of the patient is 5 feet 4 inches, weight of the patient is 210 pounds, body mass index 36 kg/m2. Blood pressure 136/86, heart rate 76. HEENT: PERRLA. Extraocular muscles intact. NECK: Supple. No carotid bruit or thyromegaly. CHEST: Clear to auscultation. HEART: S1 and S2 regular. ABDOMEN: Soft. EXTREMITIES: Clubbing and cyanosis negative. LABORATORY DATA: Blood workup pending. IMPRESSION: Abnormal stress test dated 06/07/2017, inferior inferolateral reversible ischemia, ejection fraction 58%, echo shows ejection fraction 65%, diabetes, hypertension, hyperlipidemia, history of coronary artery disease, stent in left anterior descending artery, history of stent in the circumflex obtuse marginal 1, history of ST elevation myocardial infarction, stent of right coronary artery. RECOMMENDATIONS: Cardiac catheterization. Further recommendation after cardiac catheterization. We will follow with you. Thank you Dr. Muro for providing us the opportunity in taking care of the patient, Alma Trammell. Penelope Hinkle MD
[2017-08-03 07:27] VITALS: RESP 18; TEMP 98.2; O2SAT 98
[2017-08-03] MEDS ORDERED: Lidocaine 2% Inj (20ml) ONE (07:28)
[2017-08-03 07:29] LABS: BASO # 0.06 K/mm3 (0.0-2.0); BASO % 0.5 % (0.0-3.0); EOS # 0.4 (0.0-0.7); EOS % 3.2 % (1.5-5.0); GRAN # 7.04 (1.4-6.5); GRAN % 55.3 % (50.0-68.0); HEMOGLOBIN 15.8 g/dL (12.0-16.0); LYMPH # 4.3 (1.2-3.4); LYMPH % 33.8 % (22.0-35.0); MEAN CELL VOLUME 87.8 fl (80.0-105.0); MEAN CORPUSCULAR HEMOGLOBIN 30.2 pg (25.0-35.0); MEAN CORPUSCULAR HGB CONC 34.4 g/dl (31.0-37.0); MEAN PLATELET VOLUME 10.7 fl (7.0-11.0); MONO # 0.9 (0.1-0.6); MONO % 7.2 % (1.0-6.0); RBC 5.23 10^6/uL (3.5-6.1); RED CELL DISTRIBUTION WIDTH 13.7 % (11.5-14.5); WHITE BLOOD COUNT 12.7 10^3/ul (4.5-11.0)
[2017-08-03] MEDS ORDERED: Nitroglycerin 50mg in D5W 50 MG/250 ML BOTTLE IV ONE (07:29)
[2017-08-03] MEDS ORDERED: Midazolam 2 MG/2 ML VIAL ONE ×2 (07:29→08:31)
[2017-08-03] MEDS ORDERED: Iohexol 350mgl/ml 50 ML ONE (07:29)
[2017-08-03] MEDS ORDERED: Iodixanol 320 MG/ML 200 ML BOTTLE IV ONE (07:29)
[2017-08-03] MEDS ORDERED: Phenylephrine 10 mg/ml Inj ONE (07:29)
[2017-08-03] MEDS ORDERED: Iodixanol 320 MG/ML 100 ML BOTTLE IV ONE (07:29)
[2017-08-03] MEDS ORDERED: HEPARIN SODIUM/NS 2,000 ML IV ONE (07:30)
[2017-08-03] MEDS ORDERED: Verapamil 2 ML ONE (07:46)
[2017-08-03 07:56] LABS: INR 1.01 (0.93-1.08); PARTIAL THROMBOPLASTIN TIME 30.9 Seconds (25.1-36.5); PROTHROMBIN TIME 11.6 SECONDS (9.4-12.5)
[2017-08-03 08:14] LABS: BLOOD UREA NITROGEN 16 mg/dL (7-21); CALCIUM 11.2 mg/dL (8.4-10.5); GFR AFRICAN-AMERICAN > 60; GFR NON-AFRICAN AMERICAN > 60; HDL CHOLESTEROL 34 mg/dL (29-60)
[2017-08-03 08:25] LABS: LDL CHOLESTEROL 103 mg/dL (0-129)
[2017-08-03] MEDS ORDERED: Eptifibatide 20 mg/10mL Inj IVP ONE (08:25)
[2017-08-03] MEDS ORDERED: Morphine 2 mg/ml ISec ONE (08:50)
[2017-08-03] MEDS ORDERED: IBUPROFEN PO PRN (09:26)
[2017-08-03] MEDS ORDERED: Sodium Chloride 0.9% 1,000 ML IV SCH (09:30)
--- NOTE | 2017-08-03 09:48 | CARD ---
APPROVED REPORT EKG Measurement Heart [id number] <Conclusion> Sinus bradycardia Inferior infarct,old NSSTW changes No change
[2017-08-03] MEDS ORDERED: HYDROCHLOROTHIAZIDE 25 MG PO SCH (10:00)
[2017-08-03] MEDS ORDERED: Metoprolol Succinate 50 mg XL Tab PO SCH (10:00)
[2017-08-03] MEDS ORDERED: Potassium Chloride 20 mEq ER Tab PO ONE (10:30)
--- NOTE | 2017-08-03 11:03 | CARD ---
APPROVED REPORT EKG Measurement Heart [id number] <Conclusion> Sinus bradycardia with marked sinus arrhythmia Possible Inferior infarct, age undetermined NSSTW changes
[2017-08-03] MEDS ORDERED: Insulin Reg-LOW-Coverage SC SCH (11:30)
[2017-08-03 12:46] LABS: BASO # 0.02 K/mm3 (0.0-2.0); BASO % 0.2 % (0.0-3.0); EOS # 0.3 (0.0-0.7); EOS % 2.4 % (1.5-5.0); GRAN # 5.92 (1.4-6.5); GRAN % 57.9 % (50.0-68.0); HEMOGLOBIN 13.9 g/dL (12.0-16.0); LYMPH # 3.6 (1.2-3.4); LYMPH % 35.2 % (22.0-35.0); MEAN CELL VOLUME 88.3 fl (80.0-105.0); MEAN CORPUSCULAR HEMOGLOBIN 29.6 pg (25.0-35.0); MEAN CORPUSCULAR HGB CONC 33.6 g/dl (31.0-37.0); MEAN PLATELET VOLUME 10.7 fl (7.0-11.0); MONO # 0.4 (0.1-0.6); MONO % 4.3 % (1.0-6.0); RBC 4.69 10^6/uL (3.5-6.1); RED CELL DISTRIBUTION WIDTH 13.8 % (11.5-14.5); WHITE BLOOD COUNT 10.2 10^3/ul (4.5-11.0)
[2017-08-03 12:51] LABS: BLOOD UREA NITROGEN 14 mg/dL (7-21); CALCIUM 10.2 mg/dL (8.4-10.5); GFR AFRICAN-AMERICAN > 60; GFR NON-AFRICAN AMERICAN > 60
--- NOTE | 2017-08-03 14:54 | CARD ---
APPROVED REPORT Procedure(s) performed: Left Heart Catheterization PTCA with Stenting of Proximal to Mid LAD with CARLYLE HISTORY The patient is a 67 year-old female with a history of : previous DC (> 7 days), most recent EF: 58%. (EF Method: RADIONUCLIDE), diabetes mellitus with oral treatment , chronic lung disease, previous diagnostic cath, tobacco history() : The patient is a current smoker , previous PCI (The PCI date was 10/06/2013), hypertension , dyslipidemia , Hx of PTCA times two ( 4-5 years ago LAD/RCA then Code STEMI in 2014 and PTCA RCA,Active tobbacco abuser and had an abnormal Stress trest inferior and inferior-lateral Ischemia. INDICATION The indication(s) include : positive stress test. CASE TECHNIQUE The patient was brought electively to the Cardiac Catheterization Laboratory in a fasting state and was prepped and draped in a sterile manner. The left wrist was infiltrated with 2% Lidocaine subcutaneous anesthesia. A 6FR GLIDESHEATH ACCESS KIT sheath was inserted into the left radial artery without difficulty. Coronary angiography was performed using coronary diagnostic catheters. The left coronary system was accessed and visualized with a Diagnostic ,5 Fr JL 3.5 catheter. The right coronary system was accessed and visualized with a Diagnostic ,5 Fr JR 4 catheter. The left ventricle was accessed and visualized with a 5 Fr Pigtail 145 (Angled) catheter. Left ventricular/Aortic Valve gradient assessed on pullback. Left ventriculogram was performed in CURIEL projection. Closure device was deployed with a Fr TR Band (Large) without any complications. The patient tolerated the procedure well and there were no complications associated with the procedure. Vessel Analysis The patient's coronary anatomy is right dominant. The left main coronary artery is a medium size vessel with diffuse calcification noted throughout this vessel and without significant stenosis. The left main bifurcates to the left anterior descending and circumflex. The left anterior descending artery is a medium size vessel with diffuse calcification noted throughout this vessel and with significant stenosis. There is a 80% stenosis in the proximal to Mid segment. Instent restenosis The first diagonal branch is a small size vessel with diffuse calcification noted throughout this vessel and without significant stenosis. The second diagonal branch is a medium size vessel with diffuse calcification noted throughout this vessel and without significant stenosis. The circumflex artery is a medium size vessel with diffuse calcification noted throughout this vessel and without significant stenosis. The first obtuse marginal branch is a medium size vessel with diffuse calcification noted throughout this vessel and without significant stenosis. The right coronary artery is a medium size vessel with diffuse calcification noted throughout this vessel and with significant stenosis. There is a 100% stenosis in the proximal segment. Instent restenosis, Proximal and Distal stent noted The right posterior descending artery is a medium size vessel wellcollateralized from LAD. Left Ventricle The left ventricle is normal in size with Normal contractility. There was no cardiomyopathy. The left ventricular ejection fraction is estimated to be 55%. The left ventricular end diastolic pressure is 16-18 mmHg. There was no gradient across the aortic valve upon pullback. PCI Technique Lesion Anticoagulation was achieved with Heparin. Percutaneous coronary intervention was performed on the proximal to Mid left anterior descending artery segment, Multiple Instent restenoses. The lesion stenosis prior to intervention was 80% with EUSEBIA flow. A 6 Fr XB 3 Guide Catheter was used to engage the ostium. A 0.014 x 180 cm [email or web address] Interventional Guidewire was used to cross the lesion. BALLOON DILATION A Balloon catheter 2.0 x 15 mm Mini Trek RX was inserted and inflated up to 12.00atm for 20seconds. STENT DEPLOYMENT A drug-eluting stent 2.75 x 30 mm Resolute CARLYLE was inserted and inflated up to 14.00atm for 14seconds. POST STENT DEPLOYMENT BALLOON DILATION A Balloon catheter 3.0 x 15 mm Trek RX NC was inserted and inflated up to 14.00atm for 15seconds. Final angiography reveals 0 % stenosis with EUSEBIA 3 flow. Conclusion Two Vessels Disease Instent Restenoses Proximal to Mid LAD and RCA CHIEF OF POLICE RCA well collateralized from LAD Active tobacco Abuser Pt.does not want CABG Successful PTCA with DEWS of Proximal to Mid LAD. Recommendations Smoking Cessation Cardiac Rehabilitation ReferralDaily ASA with Plavix for at least one year Aggressive Medical TherapyCardiac Risk Reduction Program Weight Loss Reduction Program Staged PTCA of RCA (CHIEF OF POLICE) on 08/31/2017 at 7:30 Am. CC; Clifford Muhammad DO.
--- NOTE | 2017-08-03 15:15 | CON ---
DATE: HISTORY OF PRESENT ILLNESS: I have spoken to Dr. Hinkle, the clearance rep, who suggested a left heart catheterization. He treated well. I do not believe that he did any angioplasty at this time and she should be discharged later on today. She is a 67-year-old female with history of diabetes, hypertension, CAD, status post PTCA x2 in the past. She came to the emergency room with Vfib requiring a small brief CPR and then a cardiac catheterization of RCA was done by Dr. Arguello on 10/06/2016. Complaining of mild chest discomfort. Had a stress test second opinion in 05/2017. Cardiac cath was offered, the patient accepted and coming for cardiac catheterization. She has a past medical history of CAD, diabetes, hypertension, high cholesterol, obesity, history of PTCA x2. She had Vfib with cardiac treatment. She had an occluded RCA with PTCA. So she is here status post cardiac cath. She is comfortable right now. No acute vision or hearing changes. No sore throat. No chest pain. No shortness of breath at this time. No abdominal pain. No extremity pain. She is tired status post cath. PHYSICAL EXAMINATION: VITAL SIGNS: She has a 98.2 temp, 61 pulse, 165/71 blood pressure, 18 respiratory rate, 98% O2 sat on room air. GENERAL: She is still smoking. We discussed no smoking anymore. This is the reason for the cardiac issues. She understands that. She is also going to stop, she says. We will work on it again. MEDICATIONS: She is on Ecotrin and Glucophage for the diabetes, potassium, Lipitor for high cholesterol, Motrin, Norvasc, hypertension, Plavix for the coronary artery disease and Toprol. LABORATORY DATA: She has a 142 sodium, potassium 3.6, BUN 16, creatinine 0.8, GFR is greater than 60, sugar is 138, calcium is 11.2, triglyceride is 199, cholesterol 153. INR is 1.01. She has a 12.7 white count. We will recheck that in a week. Hemoglobin is 15.8, hematocrit is 45.9, platelets of 267. ASSESSMENT AND PLAN: She has been seen by Dr. Hinkle. She has had a cardiac catheterization. We ill check her labs in a week. She is being discharged later today. She is here for coronary artery disease, diabetes and hopefully she will quit smoking and change her lifestyle with her habits of eating poorly and not exercise. Thank you for the opportunity and allowing me to participate in her care. Clifford Muro DO
[2017-08-03 15:34] VITALS: BP 125/69; PULSE 46
== END 2017-08-03 18:47 | disposition home or self-care (01) ==
LOC: CATH 06:40 → 2RSO 09:31 → CATH 18:47
PROVIDERS: ATTEND Internal Medicine Cardiovascular Disease
DX: I25.10 Atherosclerotic heart disease of native coronary artery without angina pectoris (principal); I25.82 Chronic total occlusion of coronary artery; T82.855A Stenosis of coronary artery stent, initial encounter; I10 Essential (primary) hypertension; E11.9 Type 2 diabetes mellitus without complications; E78.00 Pure hypercholesterolemia, unspecified; E66.9 Obesity, unspecified; I25.2 Old myocardial infarction; Z68.36 Body mass index [BMI] 36.0-36.9, adult; Z79.84 Long term (current) use of oral hypoglycemic drugs; Z95.5 Presence of coronary angioplasty implant and graft; Z79.82 Long term (current) use of aspirin; Z87.891 Personal history of nicotine dependence; Y83.2 Surgical operation with anastomosis, bypass or graft as the cause of abnormal reaction of the patient, or of later complication, without mention of misadventure at the time of the procedure
CPT/HCPCS: 36415; 80048; 80061; 85025; 85175; 85610; 85730; 86850; 86900; 93005; 93458; 99152; 99153; C1725 ×2; C1769 ×2; C1874; C1887 ×3; C9600; J1327; J1644 ×2; J2250; J2270; J2405; J3010; J7030; J7040; Q9967

== ENCOUNTER 2018-07-25 18:33 | Emergency (ER) | payer MEDICARE, OTHER ==
[2018-07-25 18:33] VITALS: BMI 36.0
[2018-07-25 19:40] VITALS: TEMP 98.3
[2018-07-25 20:33] LABS: URINE BILIRUBIN NEGATIVE (NEGATIVE); URINE BLOOD LARGE (NEGATIVE); URINE GLUCOSE (UA) NEGATIVE (NEGATIVE); URINE LEUKOCYTE ESTERASE LARGE Leu/uL (NEGATIVE); URINE PROTEIN 100 mg/dL (<30 mg/dL); URINE UROBILINOGEN 0.2 E.U./dL (<1 E.U./dL)
[2018-07-25 20:35] LABS: URINE APPEARANCE CLOUDY (CLEAR); URINE COLOR YELLOW (YELLOW)
[2018-07-25] MEDS ORDERED: Tmp-Smz 800 mg-160 mg DS Tab PO STA (20:37)
[2018-07-25 20:39] LABS: URINE WBC TNTC /hpf (0-6)
[2018-07-25 20:40] LABS: URINE BACTERIA MANY /hpf
--- NOTE | 2018-07-25 20:44 | ED PDOC ---
Arrival/HPI - General Chief Complaint: Female Genitourinary Time Seen by Provider: 07/25/18 19:34 Historian: Patient - History of Present Illness Narrative History of Present Illness (Text): 07/25/18 20:30 68 year old female, whose past medical history includes hypertension, hyperlipidemia, and diabetes, presents to the emergency department complaining of vaginal pain/pressure, itchiness, and urinary frequency for the past couple of days. Patient reports she is taking antibiotics - amoxicillin, 2 days ago for a cold, but did not take it as directed and did not complete the regiment. Patient denies any fever, chills, abdominal pain, vaginal discharge, back pain, or any other complaints. PMD: Dr. Muro Time/Duration: Other (couple days) Symptom Onset: Gradual Symptom Course: Unchanged Activities at Onset: Light Context: Home Past Medical History - Provider Review Nursing Documentation Reviewed: Yes - Infectious Disease Hx of Infectious Diseases: None - Cardiac Hx NH: Yes ("massive heart attack") Hx Pacemaker: No - Pulmonary Hx Chronic Obstructive Pulmonary Disease (COPD): Yes - Neurological Hx Paralysis: No - HEENT Hx HEENT Disorder: Yes (sinus problems, eyeglasses) - Endocrine/Metabolic Hx Endocrine Disorders: No Hx Diabetes Mellitus Type 2: Yes - Hematological/Oncological Hx Blood Transfusions: No - Musculoskeletal/Rheumatological Hx Musculoskeletal Disorders: Yes - Genitourinary/Gynecological Hx Genitourinary Disorders: (fibroids and uterine polyps) - Psychiatric Hx Emotional Abuse: No Hx Physical Abuse: No Hx Substance Use: No - Past Surgical History Past Surgical History: Unable to Obtain - Surgical History Hx Cardiac Catheterization: Yes (x 6 stents) Other/Comment: D&C x 4 years ago - Anesthesia Hx Anesthesia: Yes Hx Anesthesia Reactions: No Hx Malignant Hyperthermia: No - Suicidal Assessment Feels Threatened In Home Enviroment: No Family/Social History - Physician Review Nursing Documentation Reviewed: Yes Family/Social History: No Known Family HX Smoking Status: Heavy Smoker > 10 Cigarettes Daily Hx Alcohol Use: No Hx Substance Use: No Hx Substance Use Treatment: No Allergies/Home Meds Allergies/Adverse Reactions: Allergies baclofen Allergy (Verified 08/03/17 07:18) SWELLING nitrofurantoin Allergy (Verified 08/03/17 07:18) SWELLING DAIRY Allergy (Intermediate, Uncoded 07/29/17 11:07) CONGESTION SINUS PROBLEMS, BLOCKED NOSE Home Medications: Home Meds Medication Instructions Recorded Confirmed Amlodipine Besylate 5 mg PO DAILY 04/02/12 08/03/17 Aspirin [Aspir 81] 81 mg PO DAILY 04/02/12 08/03/17 Metoprolol Succinate 50 mg PO DAILY 10/06/13 08/03/17 Clopidogrel [Plavix] 75 mg PO DAILY 05/28/17 08/03/17 hydroCHLOROthiazide [Microzide] 25 mg PO DAILY 05/28/17 08/03/17 metFORMIN [glucOPHAGE] 500 mg PO BID 05/28/17 08/03/17 Atorvastatin [Lipitor] 40 mg PO DAILY 06/01/17 08/03/17 Ibuprofen [Advil] 1 tab PO Q6H PRN 07/27/17 08/03/17 Review of Systems - Physician Review All systems were reviewed & negative as marked: Yes - Review of Systems Constitutional: absent: Fevers, Other (chills) Gastrointestinal: absent: Abdominal Pain Genitourinary Female: Frequency, Other (vaginal pressure/pain, vaginal itchiness ). absent: Vaginal Discharge Musculoskeletal: absent: Back Pain Physical Exam Vital Signs Reviewed: Yes Vital Signs Temp Pulse Resp BP Pulse Ox 07/25/18 18:33 98.3 F 66 18 144/81 97 Temperature: Afebrile Blood Pressure: Normal Pulse: Regular Respiratory Rate: Normal Appearance: Positive for: Well-Appearing, Non-Toxic, Comfortable Pain Distress: None Mental Status: Positive for: Alert and Oriented X 3 Finger Stick Blood Glucose: 104 - Systems Exam Head: Present: Atraumatic, Normocephalic Pupils: Present: PERRL Extroacular Muscles: Present: EOMI Conjunctiva: Present: Normal Mouth: Present: Moist Mucous Membranes Neck: Present: Normal Range of Motion Respiratory/Chest: Present: Clear to Auscultation, Good Air Exchange. No: Respiratory Distress, Accessory Muscle Use Cardiovascular: Present: Regular Rate and Rhythm, Normal S1, S2. No: Murmurs Abdomen: No: Tenderness, Distention, Peritoneal Signs Back: Present: Normal Inspection Upper Extremity: Present: Normal Inspection. No: Cyanosis, Edema Lower Extremity: Present: Normal Inspection. No: Edema Neurological: Present: GCS=15, CN II-XII Intact, Speech Normal Skin: Present: Warm, Dry, Normal Color. No: Rashes Psychiatric: Present: Alert, Oriented x 3, Normal Insight, Normal Concentration Medical Decision Making ED Course and Treatment: 07/25/18 20:25 Impression: 68 year old female presents complaining of vaginal pain/pressure, itchiness, and urinary frequency for the past couple of days. Plan: -- Pyridium, Bactrim -- Urine Culture -- Urinalysis w/ micro -- Fingerstick -- Reassess and disposition Prior Visits: Notes and results from previous visits were reviewed. Progress Notes: Fingerstick: 104 UA : +protien, +UTI. On reevaluation, patient remains awake alert and oriented 3 in no acute distress. Results d/w the patient. Diagnosis of UTI d/w the patient, medicated with pyridium po and with bactrim po. Advised to follow up with primary care physician in 1-2 days without fail. Advised to take medication as prescribed. Return to the emergency room at any time for any new or worsening symptoms. Patient states she fully agrees with and understands discharge instructions. States that she agrees with the plan and disposition. Verbalized and repeated discharge instructions and plan. I have given the patient opportunity to ask any additional questions. - Lab Interpretations Lab Results: Urine Color Yellow (YELLOW) 07/25/18 20:26 Urine Appearance Cloudy (CLEAR) 07/25/18 20:26 Urine pH 6.0 (4.7-8.0) 07/25/18 20:26 Ur Specific Trinity >= 1.030 (1.005-1.035) 07/25/18 20:26 Urine Protein 100 mg/dL (<30 mg/dL) H 07/25/18 20:26 Urine Glucose (UA) Negative mg/dL (NEGATIVE) 07/25/18 20:26 Urine Ketones Negative mg/dL (NEGATIVE) 07/25/18 20:26 Urine Blood Large (NEGATIVE) H 07/25/18 20:26 Urine Nitrate Positive (NEGATIVE) H 07/25/18 20:26 Urine Bilirubin Negative (NEGATIVE) 07/25/18 20:26 Urine Urobilinogen 0.2 E.U./dL (<1 E.U./dL) 07/25/18 20:26 Ur Leukocyte Esterase Large Aminaat/uL (NEGATIVE) H 07/25/18 20:26 Urine RBC 5 - 10 /hpf (0-2) H 07/25/18 20:26 Urine WBC Tntc /hpf (0-6) H 07/25/18 20:26 Ur Epithelial Cells 1 - 3 /hpf (0-5) 07/25/18 20:26 Urine Bacteria Many /hpf (NONE) 07/25/18 20:26 I have reviewed the lab results: Yes - Medication Orders Current Medication Orders: Discontinued Medications Phenazopyridine HCl (Pyridium) 200 mg PO ONCE ONE Stop: 07/25/18 20:38 Trimethoprim/Sulfamethoxazole (Bactrim Ds Tab) 1 tab PO STAT STA; Protocol Stop: 07/25/18 20:38 - PA / CHECK AND TRANSFER BEADER / Resident Statement MD/DO has reviewed & agrees with the documentation as recorded. - Scribe Statement The provider has reviewed the documentation as recorded by the Elaine Qiu Provider Scribe Attestation: All medical record entries made by the Scribe were at my direction and personally dictated by me. I have reviewed the chart and agree that the record accurately reflects my personal performance of the history, physical exam, medical decision making, and the department course for this patient. I have also personally directed, reviewed, and agree with the discharge instructions and disposition. Disposition/Present on Arrival - Present on Arrival Any Indicators Present on Arrival: No History of DVT/PE: No History of Uncontrolled Diabetes: No Urinary Catheter: No History of Decub. Ulcer: No History Surgical Site Infection Following: None - Disposition Have Diagnosis and Disposition been Completed?: Yes Diagnosis: UTI (urinary tract infection) Disposition: HOME/ ROUTINE Disposition Time: 21:00 Patient Plan: Discharge Condition: STABLE Discharge Instructions (ExitCare): Urinary Tract Infections in Adults Additional Instructions: Thank you for letting us take care of you today. You were treated for UTI. The emergency medical care you received today was directed at your acute symptoms. If you were prescribed any medication, please fill it and take as directed. It may take several days for your symptoms to resolve. Return to the Emergency Department if your symptoms worsen, do not improve, or if you have any other problems. Please contact your doctor in 2 days for re-evaluation and follow up. Bring any paperwork you were given at discharge with you along with any medications you are taking to your follow up visit. Our treatment cannot replace ongoing medical care by a primary care provider (PCP) outside of the emergency department. Thank you for allowing the [facility] team to be part of your care today. If you had a urine culture: It will take several days for the results, if any change in treatment is needed we will contact you. Prescriptions: Phenazopyridine [Pyridium] 200 mg PO BID #6 tab Sulfamethoxazole/Trimethoprim [Bactrim DS 800 mg-160 mg] 1 tab PO BID #14 tab Forms: [employer] (Serbian)
[2018-07-25 21:30] VITALS: BP 132/86; PULSE 78; RESP 14; O2SAT 100
== END 2018-07-25 21:28 | disposition home or self-care (01) ==
LOC: ED 18:33
DX: N39.0 Urinary tract infection, site not specified (principal); I10 Essential (primary) hypertension; E78.5 Hyperlipidemia, unspecified; F17.210 Nicotine dependence, cigarettes, uncomplicated; E11.9 Type 2 diabetes mellitus without complications; J44.9 Chronic obstructive pulmonary disease, unspecified